=== PATIENT | male | born 1970 | race Caucasian/White ===

== ENCOUNTER 2018-04-17 23:59 | Emergency (ER) | payer MEDICAID, OTHER ==
[2018-04-17 23:59] VITALS: BMI 30.5
[2018-04-18] MEDS ORDERED: Albuterol-Ipratrop 3 mg / 0.5 (3 ml) UD ONE (00:12)
[2018-04-18 00:42] LABS: BASO # 0.02 K/mm3 (0.0-2.0); BASO % 0.3 % (0.0-3.0); EOS # 0.1 (0.0-0.7); EOS % 0.7 % (1.5-5.0); GRAN # 4.45 (1.4-6.5); GRAN % 60.6 % (50.0-68.0); LYMPH # 2.3 (1.2-3.4); LYMPH % 31.5 % (22.0-35.0); MEAN CELL VOLUME 88.8 fl (80.0-105.0); MEAN CORPUSCULAR HEMOGLOBIN 31.3 pg (25.0-35.0); MEAN CORPUSCULAR HGB CONC 35.2 g/dl (31.0-37.0); MONO # 0.5 (0.1-0.6); MONO % 6.9 % (1.0-6.0); RBC 4.48 10^6/uL (3.5-6.1); RED CELL DISTRIBUTION WIDTH 12.5 % (11.5-14.5); WHITE BLOOD COUNT 7.3 10^3/ul (4.5-11.0)
[2018-04-18] MEDS ORDERED: Alum-Mag Hydrox-Simethicone Susp (30 mL) PO STA (00:52)
[2018-04-18 01:00] LABS: INR 0.97; PARTIAL THROMBOPLASTIN TIME 27.2 Seconds (25.1-36.5)
--- NOTE | 2018-04-18 01:15 | ED PDOC ---
Arrival/HPI - General Chief Complaint: Chest Pain Time Seen by Provider: 04/18/18 00:14 - History of Present Illness Narrative History of Present Illness (Text): 04/18/18 01:09 48 year old male w/ hx of asthma p/w chest pain. Pt notes chest pain feels like pervious asthma exacerbations/ GERD. He notes previous intubations as a child and admissions, but that his current symptoms are not that severe and are only mild. 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 Pt went to [facility] yesterday, was dx with asthma and sent home w/ scripts. Pt however could not fill scripts due to [place] insurance and pt being in [place]. Per , they are requesting represcription of meds, albuterol and prednisone. No fever, chills or night sweats No abdominal pain No constipation or diarrhea No dark or bloody stools No leg swelling, orthopnea or pnd No hx of blood clots, cancer No other complaints. Past Medical History - Provider Review Nursing Documentation Reviewed: Yes - Pulmonary Hx Asthma: Yes - Psychiatric Hx Psychophysiologic Disorder: No Hx Substance Use: No - Surgical History Hx Orthopedic Surgery: Yes (Rt. wrist, neck) Family/Social History - Physician Review Nursing Documentation Reviewed: Yes Family/Social History: Unknown Family HX Smoking Status: Heavy Smoker > 10 Cigarettes Daily Hx Alcohol Use: No Hx Substance Use: No Allergies/Home Meds Allergies/Adverse Reactions: Allergies morphine Allergy (Verified 10/09/15 13:43) ANAPHYLAXIS Review of Systems - Review of Systems Constitutional: Normal Eyes: Normal ENT: Normal Respiratory: Normal Cardiovascular: Chest Pain Gastrointestinal: Normal Genitourinary Male: Normal Musculoskeletal: Normal Skin: Normal Neurological: Normal Endocrine: Normal Hemo/Lymphatic: Normal Psychiatric: Normal Physical Exam Vital Signs Temp Pulse Resp BP Pulse Ox 04/18/18 01:45 80 18 135/78 99 04/17/18 23:59 98.2 F 90 18 140/86 99 - Systems Exam Head: Present: Atraumatic, Normocephalic Pupils: Present: PERRL Extroacular Muscles: Present: EOMI Conjunctiva: Present: Normal Mouth: Present: Moist Mucous Membranes Neck: Present: Normal Range of Motion Respiratory/Chest: Present: Good Air Exchange, Wheezes (mild, at bases). No: Respiratory Distress, Accessory Muscle Use, Rales, Retracting, Rhonchi, Tachypneic, Tender to Palpation Cardiovascular: Present: Regular Rate and Rhythm, Normal S1, S2. No: Murmurs Abdomen: No: Tenderness, Distention, Peritoneal Signs Back: Present: Normal Inspection Upper Extremity: Present: Normal Inspection. No: Cyanosis, Edema Lower Extremity: Present: Normal Inspection. No: Edema Neurological: Present: GCS=15, CN II-XII Intact, Speech Normal Skin: Present: Warm, Dry, Normal Color. No: Rashes Psychiatric: Present: Alert, Oriented x 3, Normal Insight, Normal Concentration Medical Decision Making ED Course and Treatment: 04/18/18 01:16 48 yr old male w/ hx of asthma p/w sob. Pt notes really being here however after being cleared yesterday for same complaint for re-prescription. Given low heart score, low pretest wells, PERC out, unlikely ACS or PE and likely GERD vs mild asthma exacerbation. Heart score: 1+ Story: 0 EK RF: 0 Age: 1 Troponin: pending EK, NSR, No stemi Reviewed Xray- unremarkable. 04/18/18 02:00 troponin unremarkable lungs clear clear for d/c home - Lab Interpretations Lab Results: 04/18/18 00:30 04/18/18 00:30 Lab Results 04/18/18 00:30: PT 11.0, INR 0.97, APTT 27.2 04/18/18 00:30: WBC 7.3, RBC 4.48, Hgb 14.0, Hct 39.8 L, MCV 88.8, MCH 31.3, MCHC 35.2, RDW 12.5, Plt Count 211, MPV 11.0, Gran % 60.6, Lymph % (Auto) 31.5, [place] % (Auto) 6.9 H, Eos % (Auto) 0.7 L, Baso % (Auto) 0.3, Gran # 4.45, Lymph # (Auto) 2.3, [place] # (Auto) 0.5, Eos # (Auto) 0.1, Baso # (Auto) 0.02 04/18/18 00:30: Sodium 140, Potassium 3.7, Chloride 101, Carbon Dioxide 28, Anion Gap 14, BUN 13, Creatinine 0.9, Est GFR ( Amer) > 60, Est GFR (Non- Af Amer) > 60, Random Glucose 114 H, Calcium 9.1, Total Bilirubin 0.6, AST 27, ALT 20, Alkaline Phosphatase 51, Lactate Dehydrogenase 438, Total Creatine Kinase 299 H, CK-MB (CK-2) 1.1, CK-MB (CK-2) % Cancelled, Troponin I < 0.01, Total Protein 7.3, Albumin 4.2, Globulin 3.1, Albumin/Globulin Ratio 1.4 - RAD Interpretation Radiology Orders: 04/18/18 00:16 CHEST PORTABLE [RAD] Stat - Medication Orders Current Medication Orders: Discontinued Medications Al Hydrox/Mg Hydrox/Simethicone (Maalox Plus 30 Ml) 30 ml PO STAT STA Stop: 04/18/18 00:53 Last Admin: 04/18/18 01:15 Dose: 30 ml Famotidine (Pepcid) 20 mg PO STAT STA Stop: 04/18/18 00:53 Last Admin: 04/18/18 01:15 Dose: 20 mg Disposition/Present on Arrival - Present on Arrival Any Indicators Present on Arrival: No History of DVT/PE: No History of Uncontrolled Diabetes: No Urinary Catheter: No History of Decub. Ulcer: No History Surgical Site Infection Following: None - Disposition Have Diagnosis and Disposition been Completed?: Yes Diagnosis: Asthma Disposition: HOME/ ROUTINE Disposition Time: 01:20 Condition: GOOD Discharge Instructions (ExitCare): Asthma in Adults, Asthma, Adult (DC), Avoiding Asthma Triggers Additional Instructions: CRISSY PINON, thank you for letting us take care of you today. Your provider was Cruz Ramirez and you were treated for CHEST PAIN. The emergency medical care you received today was directed at your acute symptoms. If you were prescribed any medication, please fill it and take as directed. It may take several days for your symptoms to resolve. Return to the Emergency Department if your symptoms worsen, do not improve, or if you have any other problems. Please contact your doctor or call one of the physicians/clinics you have been referred to that are listed on the Patient Visit Information form that is included in your discharge packet. Bring any paperwork you were given at discharge with you along with any medications you are taking to your follow up visit. Our treatment cannot replace ongoing medical care by a primary care provider outside of the emergency department. Thank you for allowing the [facility] team to be part of your care today. If you had an X-Ray or CT scan: A Radiologist will review the ED reading if any change in treatment is needed we will contact you. If you had a blood, urine, or wound culture: It will take several days for the results, if any change in treatment is needed we will contact you. If you had an STI test: It will take 48 hours for the results. Please call after 1 week if you have not heard back. Prescriptions: Albuterol 0.083% [Albuterol 0.083% Inhal Rosamaria (2.5 mg/3 ml) UD] 2.5 mg IH Q4H PRN #50 neb PRN Reason: Shortness Of Breath Albuterol HFA [Ventolin HFA 90 mcg/actuation (8 g)] 1 puff IH Q6H PRN #1 inhaler PRN Reason: Shortness Of Breath Prednisone 50 mg PO DAILY 5 Days #5 tablet Referrals: Antonio Martel MD [Staff Provider] - Follow up with primary Mady Ron MD [Medical Doctor] - Follow up with primary Forms: [email or web address] (Chinese)
[2018-04-18 01:16] LABS: ALB/GLOB RATIO 1.4 (1.1-1.8); ALBUMIN 4.2 g/dL (3.0-4.8); ALT/SGPT 20 U/L (7-56); AST/SGOT 27 U/L (17-59); BLOOD UREA NITROGEN 13 mg/dL (7-21); CALCIUM 9.1 mg/dL (8.4-10.5); GFR NON-AFRICAN AMERICAN > 60
[2018-04-18 01:39] LABS: CK-MB 1.1 ng/mL (0.0-3.6); TROPONIN I < 0.01 ng/mL
[2018-04-18 01:56] VITALS: BP 135/78; PULSE 80; RESP 18; O2SAT 99
[2018-04-18 02:00] VITALS: TEMP 98.2
--- NOTE | 2018-04-18 10:31 | RAD ---
Date of service: 04/18/2018 HISTORY: Chest pain COMPARISON: 04/18/2018. FINDINGS: LUNGS: The lungs are well inflated and clear. PLEURA: No significant pleural effusion identified, no pneumothorax apparent. CARDIOVASCULAR: Normal. OSSEOUS STRUCTURES: No significant abnormalities. VISUALIZED UPPER ABDOMEN: Normal. OTHER FINDINGS: None. IMPRESSION: No active pulmonary disease.
--- NOTE | 2018-04-18 14:29 | CARD ---
APPROVED REPORT Date of service: 04/18/2018 EKG Measurement Heart [id number] <Conclusion> Normal sinus rhythm Normal ECG
== END 2018-04-18 01:45 | disposition home or self-care (01) ==
LOC: ED 23:59
DX: J45.909 Unspecified asthma, uncomplicated (principal); F17.210 Nicotine dependence, cigarettes, uncomplicated

== ENCOUNTER 2018-05-25 10:15 | Emergency (ER) | payer OTHER ==
[2018-05-25 10:56] VITALS: RESP 18; BMI 34.0
--- NOTE | 2018-05-25 11:04 | ED PDOC ---
Arrival/HPI - General Time Seen by Provider: 05/25/18 10:56 Historian: Patient - History of Present Illness Narrative History of Present Illness (Text): 05/25/18 10:57 48 y/o male, pmh including asthma/gerd, allergic to morphine, presents to the Emergency department complaining of right sided inguinal hernia swelling and pain since Friday (3 days). Patient informs right sided inguinal hernia for the past year but declined surgery. Patient reports he was having sexual intercourse on Friday and felt a "popping and swelling" as he "was carrying the girl" during the intercourse. Patient denies any other somatic complaints. Patient denies any fever, chills, nausea, vomiting, diarrhea, abdominal pain, dysuria, urinary symptoms, penile or testicular discomfort, hematuria, back pain, chest pain, shortness of breath or any other complaints. Time/Duration: < week (Friday) Symptom Onset: Gradual Symptom Course: Unchanged Quality: Aching Activities at Onset: Light Context: Home Past Medical History - Provider Review Nursing Documentation Reviewed: Yes - Pulmonary Hx Asthma: Yes - Psychiatric Hx Psychophysiologic Disorder: No Hx Substance Use: No - Surgical History Hx Orthopedic Surgery: Yes (Rt. wrist, neck) Family/Social History - Physician Review Nursing Documentation Reviewed: Yes Family/Social History: No Known Family HX Smoking Status: Heavy Smoker > 10 Cigarettes Daily Hx Alcohol Use: No Hx Substance Use: No Allergies/Home Meds Allergies/Adverse Reactions: Allergies morphine Allergy (Verified 05/25/18 10:53) ANAPHYLAXIS Review of Systems - Review of Systems Constitutional: absent: Fatigue, Fevers Eyes: absent: Vision Changes ENT: absent: Hearing Changes Respiratory: absent: SOB, Cough Cardiovascular: absent: Chest Pain Gastrointestinal: Other (rt groin swelling). absent: Abdominal Pain, Nausea, Vomiting Skin: absent: Rash, Pruritis Neurological: absent: Headache, Dizziness Psychiatric: absent: Anxiety, Depression, Suicidal Ideation Physical Exam Vital Signs Reviewed: Yes Vital Signs Temp Pulse Resp BP Pulse Ox 05/25/18 10:53 98.0 F 62 18 138/86 98 Temperature: Afebrile Blood Pressure: Normal Pulse: Regular Respiratory Rate: Normal Appearance: Positive for: Well-Appearing, Non-Toxic, Comfortable Pain Distress: Moderate Mental Status: Positive for: Alert and Oriented X 3 - Systems Exam Head: Present: Atraumatic, Normocephalic Pupils: Present: PERRL Extroacular Muscles: Present: EOMI Conjunctiva: Present: Normal Mouth: Present: Moist Mucous Membranes Neck: Present: Normal Range of Motion Respiratory/Chest: Present: Clear to Auscultation, Good Air Exchange. No: Respiratory Distress, Accessory Muscle Use Cardiovascular: Present: Regular Rate and Rhythm, Normal S1, S2. No: Murmurs Abdomen: Present: Hernias (rt. inguinal hernia, slightly tender to touch, no discoloration noted.). No: Tenderness, Distention, Peritoneal Signs, Rebound, Guarding Genitourinary Male: Present: Normal External Genitalia, Hernias (rt. inguinal hernia approx. [id number] swelling lump, slightly tendner to touch, no discoloration). No: Lesions, Penile Discharge, Testicle Tenderness, Penile Swelling, Masses, Erythema, Testicle Swelling Back: Present: Normal Inspection Upper Extremity: Present: Normal Inspection. No: Cyanosis, Edema Lower Extremity: Present: Normal Inspection. No: Edema Neurological: Present: GCS=15, CN II-XII Intact, Speech Normal Skin: Present: Warm, Dry, Normal Color. No: Rashes Psychiatric: Present: Alert, Oriented x 3, Normal Insight, Normal Concentration Medical Decision Making ED Course and Treatment: 05/25/18 11:09 -labs/ua -CT abdomen and pelvis -IVF/toradol/Ice pack -Will attempt to reduce the hernia -Observe and reassess 05/25/18 11:42 -With reapplication of ice to the right inguinal hernia, the hernia was reduced by me with massaging, hernia reduced with 1 attempt with resolved swelling and resolved lump. Patient tolerated the procedure well and is resting comfortably. Patient denies any new medical complaints. Total procedure time 10 minutes. 05/25/18 13:24 -CT abdomen and pelvis show There is a small amount of fat in the right inguinal canal which probably represents a fat containing inguinal hernia. There is no herniation of bowel loops -Labs show no acute significant findings. -UA ordered but the patient declined to give the speciman or wants the UA test to be performed. -All labs and radiology results discussed with the patient and Dr. Eisenberg, Dr. Eisenberg recommend outpatient follow up and the patient agreed. Pt. has no inguinal pain or swelling now, lump resolved, eating and drinking well, tolerating po, no pain, stable to be discharged home at this time. -Discharge home with motrin, avoid strenuous exercise or exercise, avoid heavy lifting, follow up with your own pmd and general surgeon within 2 days, return to the ER for any new or worsening signs or symptoms. - Lab Interpretations I have reviewed the lab results: Yes - RAD Interpretation Radiology Orders: PROCEDURE: CT Abdomen and Pelvis with contrast HISTORY: rt. groin pain and swelling x 1 year COMPARISON: None. TECHNIQUE: Contrast dose: 100 cc of Omni 350 Radiation dose: Total exam DLP = 847 mGy-cm. This CT exam was performed using one or more of the following dose reduction techniques: Automated exposure control, adjustment of the mA and/or kV according to patient size, and/or use of iterative reconstruction technique. FINDINGS: LOWER THORAX: Unremarkable. LIVER: Unremarkable. No gross lesion or ductal dilatation. GALLBLADDER AND BILE DUCTS: Unremarkable. PANCREAS: Unremarkable. No gross lesion or ductal dilatation. SPLEEN: Unremarkable. ADRENALS: Unremarkable. No mass. KIDNEYS AND URETERS: Unremarkable. No hydronephrosis. No solid mass. VASCULATURE: Unremarkable. No aortic aneurysm. BOWEL: Unremarkable. No obstruction. No gross mural thickening. APPENDIX: Normal appendix. PERITONEUM: There is a small amount of fat in the right inguinal canal which probably represents a fat containing inguinal hernia. There is no herniation of bowel loops LYMPH NODES: Unremarkable. No enlarged lymph nodes. BLADDER: Unremarkable. REPRODUCTIVE: Unremarkable. BONES: No acute fracture. OTHER FINDINGS: None. IMPRESSION: There is a small amount of fat in the right inguinal canal which probably represents a fat containing inguinal hernia. There is no herniation of bowel loops Extrusion Press Operator: Radiologist - PA / PUBLICITY WRITER / Resident Statement MD/DO has reviewed & agrees with the documentation as recorded. - Scribe Statement The provider has reviewed the documentation as recorded by the Paulineibe Marline Logan. All medical record entries made by the Arabella were at my direction and personally dictated by me. I have reviewed the chart and agree that the record accurately reflects my personal performance of the history, physical exam, medical decision making, and the department course for this patient. I have also personally directed, reviewed, and agree with the discharge instructions and disposition. Disposition/Present on Arrival - Present on Arrival Any Indicators Present on Arrival: No History of DVT/PE: No History of Uncontrolled Diabetes: No Urinary Catheter: No History of Decub. Ulcer: No History Surgical Site Infection Following: None - Disposition Have Diagnosis and Disposition been Completed?: Yes Diagnosis: Inguinal hernia Disposition: HOME/ ROUTINE Disposition Time: 13:26 Patient Plan: Discharge Condition: IMPROVED Additional Instructions: -Discharge home with motrin, avoid strenuous exercise or exercise, avoid heavy lifting, follow up with your own pmd and general surgeon within 2 days, return to the ER for any new or worsening signs or symptoms. Prescriptions: Ibuprofen [Motrin Tab] 600 mg PO QID PRN #30 tab PRN Reason: Other Referrals: PCP,NO [Primary Care Provider] - Follow up with primary Sergio Singer MD [Medical Doctor] - Follow up with primary [facility] [Outside] - Follow up with primary Forms: WORK NOTE
[2018-05-25] MEDS ORDERED: Sodium Chloride 0.9% 1,000 ML IV STA (11:05)
[2018-05-25] MEDS ORDERED: Iohexol 350 MG/100 ML VIAL ONE (11:26)
[2018-05-25 11:48] LABS: BASO # 0.03 K/mm3 (0.0-2.0); BASO % 0.5 % (0.0-3.0); EOS # 0.1 (0.0-0.7); EOS % 1.1 % (1.5-5.0); GRAN # 3.94 (1.4-6.5); GRAN % 62.5 % (50.0-68.0); HEMOGLOBIN 15.6 g/dL (14.0-18.0); LYMPH # 1.8 (1.2-3.4); LYMPH % 28.5 % (22.0-35.0); MEAN CELL VOLUME 88.7 fl (80.0-105.0); MEAN CORPUSCULAR HGB CONC 36.1 g/dl (31.0-37.0); MEAN PLATELET VOLUME 10.5 fl (7.0-11.0); MONO # 0.5 (0.1-0.6); MONO % 7.4 % (1.0-6.0); RBC 4.87 10^6/uL (3.5-6.1); RED CELL DISTRIBUTION WIDTH 12.4 % (11.5-14.5); WHITE BLOOD COUNT 6.3 10^3/ul (4.5-11.0)
[2018-05-25 11:56] LABS: ALB/GLOB RATIO 1.3 (1.1-1.8); ALBUMIN 4.5 g/dL (3.0-4.8); ALT/SGPT 26 U/L (7-56); AST/SGOT 30 U/L (17-59); BLOOD UREA NITROGEN 9 mg/dL (7-21); CALCIUM 9.6 mg/dL (8.4-10.5); GFR NON-AFRICAN AMERICAN > 60
--- NOTE | 2018-05-25 13:14 | CT ---
Date of service: 05/25/2018 PROCEDURE: CT Abdomen and Pelvis with contrast HISTORY: rt. groin pain and swelling x 1 year COMPARISON: None. TECHNIQUE: Contrast dose: 100 cc of Omni 350 Radiation dose: Total exam DLP = 847 mGy-cm. This CT exam was performed using one or more of the following dose reduction techniques: Automated exposure control, adjustment of the mA and/or kV according to patient size, and/or use of iterative reconstruction technique. FINDINGS: LOWER THORAX: Unremarkable. LIVER: Unremarkable. No gross lesion or ductal dilatation. GALLBLADDER AND BILE DUCTS: Unremarkable. PANCREAS: Unremarkable. No gross lesion or ductal dilatation. SPLEEN: Unremarkable. ADRENALS: Unremarkable. No mass. KIDNEYS AND URETERS: Unremarkable. No hydronephrosis. No solid mass. VASCULATURE: Unremarkable. No aortic aneurysm. BOWEL: Unremarkable. No obstruction. No gross mural thickening. APPENDIX: Normal appendix. PERITONEUM: There is a small amount of fat in the right inguinal canal which probably represents a fat containing inguinal hernia. There is no herniation of bowel loops LYMPH NODES: Unremarkable. No enlarged lymph nodes. BLADDER: Unremarkable. REPRODUCTIVE: Unremarkable. BONES: No acute fracture. OTHER FINDINGS: None. IMPRESSION: There is a small amount of fat in the right inguinal canal which probably represents a fat containing inguinal hernia. There is no herniation of bowel loops
[2018-05-25 14:03] VITALS: BP 145/94; PULSE 54
[2018-05-25 14:13] VITALS: TEMP 98; O2SAT 98
== END 2018-05-25 14:12 | disposition home or self-care (01) ==
LOC: ED 10:15
DX: K40.90 Unilateral inguinal hernia, without obstruction or gangrene, not specified as recurrent (principal)
CPT/HCPCS: 74177; 80053; 85025; 96361; 96374; 99284; J1885; J7030; Q9967